=== PATIENT | male | born 1955 | race Caucasian/White ===

== ENCOUNTER 2020-07-04 07:58 | Emergency (ER) | payer OTHER ==
[2020-07-04] MEDS ORDERED: KETOROLAC 30 MG/ML VIAL IVP STA (08:31)
[2020-07-04] MEDS ORDERED: ONDANSETRON 4 MG/2 ML VIAL IVP STA (08:31)
[2020-07-04 08:34] LABS: BASOPHILS % (AUTO) 0.4 %; EOSINOPHILS % (AUTO) 0.3 %; HGB - HEMOGLOBIN 15.3 g/dL (14.0-18.0); LYMPHOCYTES # (AUTO) 0.9 10^3/uL (1.5-3.5); LYMPHOCYTES % (AUTO) 8.1 %; MEAN CORPUSCULAR HEMOGLOBIN 34.3 pg (27.0-31.0); MEAN CORPUSCULAR HGB CONC 34.4 g/dL (32.0-36.0); MEAN CORPUSCULAR VOLUME 99.8 fL (80.0-94.0); MEAN PLATELET VOLUME 10.8 fL (7.4-11.4); MONOCYTES % (AUTO) 9.5 %; NEUTROPHILS # (AUTO) 8.6 10^3/uL (1.5-6.6); NEUTROPHILS % (AUTO) 81.3 %; PLT - PLATELET COUNT 326 10^3/uL (130-450); RED BLOOD COUNT 4.46 10^6/uL (4.70-6.10); RED CELL DISTRIBUTION WIDTH 13.8 % (12.0-15.0); WHITE BLOOD COUNT 10.6 x10^3/uL (4.8-10.8)
--- NOTE | 2020-07-04 08:34 | ED Physician Documentation ---
History of Present Illness - Stated complaint Stated Complaint: BACK PX - Chief complaint Chief Complaint: Back Pain - History obtained from History obtained from: Patient - Additonal information Additional information: Patient comes emergency department complaining of left flank pain that started a few days ago and has gotten progressively worse. Patient states he has had nausea and a an intermittent sense of chills since onset of the pain, as well. He states the pain gradually developed over the course of the day on the first day, which was Sunday. He states that he had not been doing any heavy lifting or repetitive work, and that he does not have any chronic low back issues. He denies any gross blood in his urine. No dysuria. He has not been around anybody else has been sick. Patient states he is otherwise healthy. No other complaints at this time. Review of Systems Ten Systems: 10 systems reviewed and negative Constitutional: reports: Reviewed and negative Eyes: reports: Reviewed and negative Ears: reports: Reviewed and negative Nose: reports: Reviewed and negative Throat: reports: Reviewed and negative Cardiac: reports: Reviewed and negative Respiratory: reports: Reviewed and negative GI: reports: Abdominal Pain (Flank, left), Nausea. denies: Constipation, Diarrhea : reports: Reviewed and negative Skin: reports: Reviewed and negative Musculoskeletal: reports: Back pain. denies: Neck pain, Extremity pain Neurologic: reports: Reviewed and negative Psychiatric: reports: Reviewed and negative Endocrine: reports: Reviewed and negative Immunocompromised: reports: Reviewed and negative PD PAST MEDICAL HISTORY - Present Medications Home Medications: Ambulatory Orders Medication Instructions Recorded Confirmed HYDROcod/ACETAM 5/325 [Raymond 5/325] 1 - 2 ea PO Q6H PRN #15 tablet 07/04/20 Ondansetron Odt [Zofran] 4 mg TL Q6H PRN #10 tablet 07/04/20 - Allergies Allergies/Adverse Reactions: Allergies Allergy/AdvReac Type Severity Reaction Status Date / Time No Known Drug Allergies Allergy Verified 07/04/20 08:09 PD ED PE NORMAL - Vitals Vital signs reviewed: Yes - General General: Alert and oriented X 3, No acute distress, Well developed/nourished - HEENT HEENT: Atraumatic, PERRL, EOMI, Moist mucous membranes - Neck Neck: Supple, no meningeal sign - Cardiac Cardiac: RRR, No murmur - Respiratory Respiratory: No respiratory distress, Clear bilaterally - Abdomen Abdomen: Soft, Non distended, Other (Left flank mild tenderness; No rebound or guarding) - Derm Derm: Normal color, Warm and dry, No rash - Extremities Extremities: No deformity, No edema, No calf tenderness / cord - Neuro Neuro: Alert and oriented X 3 - Psych Psych: Normal mood, Normal affect Results - Vitals Vitals: Vital Signs - 24 hr 07/04/20 07/04/20 07/04/20 08:07 08:32 09:37 Temperature 36.7 C 36.8 C 36.6 C Heart Rate 80 82 76 Respiratory 16 18 18 Rate Blood Pressure 184/88 H 187/107 H 159/93 H O2 Saturation 97 97 97 07/04/20 10:00 Temperature 36.8 C Heart Rate 71 Respiratory 18 Rate Blood Pressure 142/80 H O2 Saturation 97 Oxygen O2 Source Room air - Labs Labs: Laboratory Tests 07/04/20 07/04/20 07/04/20 08:15 08:15 08:45 WBC 10.6 RBC 4.46 L Hgb 15.3 Hct 44.5 MCV 99.8 H MCH 34.3 H MCHC 34.4 RDW 13.8 Plt Count 326 MPV 10.8 Neut # (Auto) 8.6 H Lymph # (Auto) 0.9 L [place] # (Auto) 1.0 Eos # (Auto) 0.0 Baso # (Auto) 0.0 Absolute Nucleated RBC 0.00 Nucleated RBC % 0.0 Sodium 135 Potassium 4.1 Chloride 102 Carbon Dioxide 22 Anion Gap 11.0 BUN 19 Creatinine 1.3 H Estimated GFR (MDRD) 56 L Glucose 161 H Calcium 10.0 Total Bilirubin 0.7 AST 17 ALT 28 Alkaline Phosphatase 78 Total Protein 7.4 Albumin 4.5 Globulin 2.9 Albumin/Globulin Ratio 1.6 Lipase 22 Urine Color YELLOW Urine Clarity CLEAR Urine pH 6.0 Ur Specific [place] 1.025 Urine Protein NEGATIVE Urine Glucose (UA) NEGATIVE Urine Ketones NEGATIVE Urine Occult Blood NEGATIVE Urine Nitrite NEGATIVE Urine Bilirubin NEGATIVE Urine Urobilinogen 1 (NORMAL) Ur Leukocyte Esterase NEGATIVE Ur Microscopic Review NOT INDICATED Urine Culture Comments NOT INDICATED - Rads (name of study) CT abd/pelvis Radiology: Final report received, EMP read indepedently, See rad report (3mm stone L UVJ) PD MEDICAL DECISION MAKING - ED course Complexity details: reviewed results, re-evaluated patient, considered differential, d/w patient ED course: Patient was treated symptomatically with IV fluids, Zofran, and Toradol, and worked up with labs and urinalysis initially, then ultimately CT, which showed a 3 mm stone at the UVJ. The pt was feeling better on re-eval, and I felt he was stable for d/c. He has been counseled regarding intake of plenty of fluids, pain management at home, and indications for urology follow-up. We have also discussed the usual indications for return. Departure - Departure Disposition: Home, Self Care Clinical Impression: Kidney stone on left side Condition: Stable Instructions: ED Stone Renal W Colic Follow-Up: Jb Ashton MD [Physician No Access] - Prescriptions: HYDROcod/ACETAM 5/325 [Raymond 5/325] 1 - 2 ea PO Q6H PRN #15 tablet PRN Reason: Pain Ondansetron Odt [Zofran] 4 mg TL Q6H PRN #10 tablet PRN Reason: Nausea / Vomiting Comments: Your CT scan shows a small kidney stone that is about to pop into your bladder on the left. This is the toughest spot for a stone to pass, and is most likely why you are continuing to feel the pain in your left flank. However, once the stone has passed into your bladder, will be very easily passable from there. You may use the nausea and pain medications, as needed, and please be sure to drink plenty of fluid. You may urinate through a strainer if you would like to be certain of the stones passage. If you do not find that your symptoms improve over the next week, or if you do not note that the stone is passed, please follow-up with urology. Discharge Date/Time: 07/04/20 10:16
[2020-07-04 08:42] LABS: ALBUMIN 4.5 g/dL (3.2-5.5); ALBUMIN/GLOBULIN RATIO 1.6 (1.0-2.2); BILIRUBIN,TOTAL 0.7 mg/dL (0.2-1.0); CREATININE 1.3 mg/dL (0.6-1.2); TOTAL PROTEIN 7.4 g/dL (6.7-8.2)
[2020-07-04 09:03] LABS: BILIRUBIN,URINE NEGATIVE (NEGATIVE); GLUCOSE, URINE (UA) NEGATIVE (NEGATIVE); KETONES,URINE (UA) NEGATIVE (NEGATIVE); LEUKOCYTE ESTERASE, URINE NEGATIVE (NEGATIVE); NITRITE,URINE NEGATIVE (NEGATIVE); OCCULT BLOOD,URINE NEGATIVE (NEGATIVE); PROTEIN,URINE NEGATIVE (NEGATIVE); UROBILINOGEN,URINE 1 (NORMAL) E.U./dL (NORMAL)
[2020-07-04 09:05] LABS: CLARITY,URINE CLEAR (CLEAR)
[2020-07-04] MEDS ORDERED: IOVERSOL 320 100 ML VIAL IVP ONE ×2 (09:23→09:37)
--- NOTE | 2020-07-04 10:00 | CT Report ---
PROCEDURE: Abdomen/Pelvis W INDICATIONS: L abd pain CONTRAST: IV CONTRAST: Optiray 320 ml: 100 PO CONTRAST: *NO PO CONTRAST TECHNIQUE: After the administration of intravenous contrast, 5 mm thick sections acquired from the diaphragms to the symphysis. 5 mm thick coronal and sagittal reformats were acquired. For radiation dose reducti on, the following was used: automated exposure control, adjustment of mA and/or kV according to denise ent size. COMPARISON: None. FINDINGS: Image quality: Excellent. ABDOMEN: Lung bases: Lung bases are clear. Heart size is normal. Solid organs: Liver and spleen are normal in size and enhancement. Gallbladder is unremarkable Gilbert iary system is non dilated. Pancreas enhances normally. No adrenal nodules. Kidneys demonstrate no rmal size and enhancement, without hydronephrosis. A low density cyst is present at the lower pole o f the right kidney. There are small perirenal cysts on the left. There is mild to moderate left periu reteral fat stranding. No hydroureter. A 3 mm diameter calculus is present at the left ureterovesicul ar junction (series 3/image 88). Peritoneum and bowel: Bowel loops demonstrate normal wall thickness and caliber. The appendix is thi n-walled. There are scattered sigmoid colon diverticular outpouchings. No mucosal thickening or peric olonic fat stranding to suggest acute diverticulitis. No free fluid or air. Nodes and vessels: No retroperitoneal or mesenteric adenopathy by size criteria. Aorta and inferior vena cava are normal in size. Scattered atheromatous calcifications are present throughout the abdom inal aorta. Miscellaneous: No ventral hernias. PELVIS: Genitourinary: Bladder wall thickness is normal. Miscellaneous: No inguinal adenopathy. There is a moderate right and a small left fat-containing ing uinal hernia. Bones: No suspicious bony lesions. No vertebral body compression fractures. IMPRESSION: 1. 3 mm calculus at the left ureterovesicular junction and periureteral fat stranding likely secondar y to recent passage of the stone. No hydronephrosis. 2. No acute other acute intra-abdominal findings. Normal appendix. Diverticulosis. No acute diverticu litis. Reviewed by: Roberta Vargas MD on 07/04/2020 9:58 AM PDT Approved by: Roberta Vargas MD on 07/04/2020 9:58 AM PDT Station ID: [id number]
[2020-07-04 10:15] VITALS: BP 142/80
== END 2020-07-04 10:16 | disposition home or self-care (01) ==
LOC: ED 07:58
DX: N20.0 Calculus of kidney (principal)
CPT/HCPCS: 36415; 74177; 80053; 81003; 83690; 85025; 96374; 99283; 99284; Q9967; 81001; 87086